=== PATIENT | male | born 1955 | race African-American/Black ===

== ENCOUNTER 2020-09-05 02:50 | Emergency (ER) | payer MEDICARE ==
[~2020-09-05] VITALS: Ht 182.9 cm; Wt 82.0 kg
[2020-09-05 03:05] VITALS: BP 143/88
== END 2020-09-05 03:34 | disposition home or self-care (01) ==
LOC: ER 03:10
DX: F32.9 Major depressive disorder, single episode, unspecified (principal); R45.6 Violent behavior
CPT/HCPCS: 99283

== ENCOUNTER 2022-10-28 17:04 | Inpatient (IN) | payer MEDICARE, OTHER ==
[~2022-10-28] VITALS: Ht 185.4 cm; Wt 63.1 kg
[2022-10-28 17:00] VITALS: BP 150/87; PULSE 82; RESP 18; TEMP 96.4
[~2022-10-28 17:04] MED LIST: TRAZ-251 MT
[2022-10-28] MEDS ORDERED: ONDANSETRON HCL 4MG/2ML INJ IV PRN (17:30)
[2022-10-28] MEDS ORDERED: LORAZEPAM 2MG/ML CPJ IV PRN ×2 (17:30→17:45)
[2022-10-28] MEDS ORDERED: CLONIDINE 0.1MG TABLET PO PRN (17:30)
[2022-10-28] MEDS ORDERED: GUAIFENESIN 600MG ER TABLET PO SCH (17:30)
[2022-10-28] MEDS ORDERED: LEVETIRACETAM 500MG TABLET PO PRN (17:45)
[2022-10-28] MEDS ORDERED: GUAIFENESIN 600MG ER TABLET PO PRN (17:45)
[2022-10-28] MEDS ORDERED: LORAZEPAM 1MG TABLET PO PRN (17:45)
[2022-10-28] MEDS: FAMOTIDINE 20MG/2ML VIAL IV SCH (22:01)
[2022-10-28] MEDS: DEXT 5%/0.9% NACL 1,000 ML IV SCH (22:02)
[2022-10-29] MEDS: DEXT 5%/0.9% NACL 1,000 ML IV SCH ×2 (06:50→23:03)
[2022-10-29 07:04] LABS: HEMATOCRIT. 40.5 % (42.0-52.0); HEMOGLOBIN. 13.4 g/dL (14.0-18.0); MEAN CORPUSCULAR HEMOGLOBIN 29.4 pg (28.0-32.0); MEAN CORPUSCULAR HGB CONC 33.1 g/dL (31.0-37.0); MEAN CORPUSCULAR VOLUME 88.8 fL (80.0-94.0); MEAN PLATELET VOLUME 10.6 fl (7.4-10.4); PLATELET 89 x1000/uL (130-400); RED BLOOD CELL COUNT 4.56 mill/uL (4.7-6.1); RED CELL DISTRIBUTION WIDTH 14.1 % (11.6-14.6); WHITE BLOOD COUNT 2.3 x1000/uL (4.5-11.0)
[2022-10-29 07:24] LABS: DIFFERENTIAL COMMENT 1
[2022-10-29 08:00] VITALS: BP 140/73; PULSE 59; RESP 18; TEMP 98.2
[2022-10-29 08:15] LABS: CHLORIDE 110 mEq/L (98-107); INDEX HEMOLYSI 2 (1-3); INDEX ICTERIC 1 (1-4); INDEX LIPEMIC 1 (1-3); SODIUM 140 mEq/L (136-145)
[2022-10-29 08:33] LABS: ALANINE AMINOTRANSFERASE 129 IU/L (13-61); ALBUMIN 2.3 g/dL (3.4-5.0); ASPARTATE AMINOTRANSFERASE 151 IU/L (15-37); BILIRUBIN TOTAL 0.9 mg/dL (0.1-1.0); CALCIUM 8.4 mg/dL (8.5-10.1); CARBON DIOXIDE 25 mEq/L (21-32); CREATININE 0.7 mg/dL (0.6-1.3); GLUCOSE 93 mg/dL (70-105); PREALBUMIN 7.6 mg/dL (20.0-40.0); PROTEIN TOTAL 6.9 g/dL (6.0-8.3); UREA NITROGEN BLOOD 10 mg/dL (7-21)
[2022-10-29] MEDS: AMLODIPINE 5MG TABLET PO SCH (09:59)
[2022-10-29] MEDS: THIAMINE HCL 100MG TABLET PO SCH (09:59)
[2022-10-29 20:00] VITALS: BP 139/69; PULSE 66; RESP 20; TEMP 98.6
[2022-10-29] MEDS: ATORVASTATIN CALCIUM 40MG TABLET PO SCH (22:27)
[2022-10-29] MEDS: FAMOTIDINE 20MG/2ML VIAL IV SCH (22:28)
[2022-10-30 08:00] VITALS: BP 121/75; PULSE 63; RESP 17; TEMP 97.3
[2022-10-30 08:29] LABS: HEMATOCRIT. 40.7 % (42.0-52.0); HEMOGLOBIN. 13.4 g/dL (14.0-18.0); MEAN CORPUSCULAR HEMOGLOBIN 28.9 pg (28.0-32.0); MEAN CORPUSCULAR HGB CONC 32.9 g/dL (31.0-37.0); MEAN PLATELET VOLUME 10.4 fl (7.4-10.4); PLATELET 96 x1000/uL (130-400); RED BLOOD CELL COUNT 4.62 mill/uL (4.7-6.1); RED CELL DISTRIBUTION WIDTH 13.5 % (11.6-14.6); WHITE BLOOD COUNT 2.7 x1000/uL (4.5-11.0)
[2022-10-30 08:33] LABS: DIFFERENTIAL COMMENT 1
[2022-10-30 08:53] LABS: CHLORIDE 110 mEq/L (98-107); INDEX HEMOLYSI 1 (1-3); INDEX ICTERIC 1 (1-4); INDEX LIPEMIC 1 (1-3); SODIUM 137 mEq/L (136-145)
[2022-10-30 09:01] LABS: PLATELET ESTIMATE DECREASED
[2022-10-30 09:09] LABS: ALANINE AMINOTRANSFERASE 130 IU/L (13-61); ALBUMIN 2.5 g/dL (3.4-5.0); ASPARTATE AMINOTRANSFERASE 129 IU/L (15-37); BILIRUBIN TOTAL 1.4 mg/dL (0.1-1.0); CARBON DIOXIDE 28 mEq/L (21-32); CREATININE 0.7 mg/dL (0.6-1.3); GLUCOSE 109 mg/dL (70-105); IRON 75 ug/dL (50-175); PROTEIN TOTAL 7.6 g/dL (6.0-8.3); THYROID STIMULATING HORMONE 0.75 uIU/mL (0.36-3.74); TOTAL IRON BINDING CAPACITY 260 ug/dL (250-450); UREA NITROGEN BLOOD 8 mg/dL (7-21)
[2022-10-30 09:19] LABS: VITAMIN B12 SERUM 843 pg/mL (211-911)
[2022-10-30] MEDS: QUETIAPINE FUMARATE 25MG TABLET PO SCH ×2 (09:51→21:30)
[2022-10-30] MEDS: ACETAMINOPHEN 325MG TABLET PO PRN (09:51)
[2022-10-30] MEDS: ASPIRIN 81MG EC TABLET PO SCH (09:52)
[2022-10-30] MEDS: AMLODIPINE 5MG TABLET PO SCH (09:52)
[2022-10-30] MEDS: THIAMINE HCL 100MG TABLET PO SCH (09:52)
[2022-10-30 10:22] LABS: PLATELET ESTIMATE DECREASED; TARGET CELLS 1+
[2022-10-30] MEDS ORDERED: LORAZEPAM 2MG/ML CPJ IV NR (12:30)
[2022-10-30 15:10] LABS: FERRITIN 494 ng/mL (22-322)
[2022-10-30 15:11] LABS: PROSTRATE SPECIFIC AG TOTAL 0.38 ng/mL (0.0-4.0)
[2022-10-30 20:00] VITALS: BP 168/88; PULSE 95; RESP 18; TEMP 99.3
[2022-10-30] MEDS: FAMOTIDINE 20MG/2ML VIAL IV SCH (21:00)
[2022-10-30] MEDS: ATORVASTATIN CALCIUM 40MG TABLET PO SCH (21:30)
[2022-10-30] MEDS: DEXT 5%/0.9% NACL 1,000 ML IV SCH ×2 (22:50→23:00)
[2022-10-31] VITALS: BP 168/88; PULSE 95; RESP 18; TEMP 99.3
[2022-10-31 08:00] VITALS: BP 120/69; PULSE 86; RESP 17; TEMP 97.4
[2022-10-31] MEDS: AMLODIPINE 5MG TABLET PO SCH (10:25)
[2022-10-31] MEDS: QUETIAPINE FUMARATE 25MG TABLET PO SCH ×2 (10:25→21:19)
[2022-10-31] MEDS: ASPIRIN 81MG EC TABLET PO SCH (10:25)
[2022-10-31] MEDS: THIAMINE HCL 100MG TABLET PO SCH (10:25)
[2022-10-31] MEDS: DEXT 5%/0.9% NACL 1,000 ML IV SCH (12:10)
[2022-10-31] MEDS ORDERED: ENOXAPARIN 80MG/0.8ML SYR SUBCUT SCH (14:00)
[2022-10-31 17:46] LABS: INR 1.2; PROTHROMBIN TIME 12.4 sec (9.6-11.0)
[2022-10-31 20:00] VITALS: BP 120/64; PULSE 101; RESP 18; TEMP 98.3
[2022-10-31] MEDS: ATORVASTATIN CALCIUM 40MG TABLET PO SCH (21:19)
[2022-10-31] MEDS: FAMOTIDINE 20MG/2ML VIAL IV SCH (21:22)
[2022-11-01] MEDS: DEXT 5%/0.9% NACL 1,000 ML IV SCH ×2 (02:30→14:50)
[2022-11-01] MEDS: ENOXAPARIN 80MG/0.8ML SYR SUBCUT SCH ×2 (05:33→18:54)
[2022-11-01 08:00] VITALS: BP 105/61; PULSE 74; RESP 20; TEMP 98
[2022-11-01] MEDS: THIAMINE HCL 100MG TABLET PO SCH (10:12)
[2022-11-01] MEDS: ASPIRIN 81MG EC TABLET PO SCH (10:12)
[2022-11-01] MEDS: AMLODIPINE 5MG TABLET PO SCH (10:13)
[2022-11-01 20:00] VITALS: BP 119/78; PULSE 91; RESP 20; TEMP 97.9
[2022-11-01] MEDS: FAMOTIDINE 20MG/2ML VIAL IV SCH (21:30)
[2022-11-01] MEDS: ATORVASTATIN CALCIUM 40MG TABLET PO SCH (21:31)
[2022-11-01] MEDS: QUETIAPINE FUMARATE 25MG TABLET PO SCH (21:31)
[2022-11-02] MEDS: DEXT 5%/0.9% NACL 1,000 ML IV SCH ×2 (04:10→17:32)
[2022-11-02] MEDS: ENOXAPARIN 80MG/0.8ML SYR SUBCUT SCH ×2 (05:53→17:32)
[2022-11-02 08:00] VITALS: BP 112/68; PULSE 88; RESP 17; TEMP 97.6
[2022-11-02] MEDS: THIAMINE HCL 100MG TABLET PO SCH (08:53)
[2022-11-02] MEDS: ACETAMINOPHEN 325MG TABLET PO PRN (08:53)
[2022-11-02] MEDS: ASPIRIN 81MG EC TABLET PO SCH (08:53)
[2022-11-02] MEDS: AMLODIPINE 5MG TABLET PO SCH (08:54)
[2022-11-02 19:38] VITALS: BP 137/81; PULSE 77; RESP 20; TEMP 98.4
[2022-11-02] MEDS: FAMOTIDINE 20MG/2ML VIAL IV SCH (21:26)
[2022-11-02] MEDS: ATORVASTATIN CALCIUM 40MG TABLET PO SCH (21:32)
[2022-11-02] MEDS: QUETIAPINE FUMARATE 25MG TABLET PO SCH (21:33)
[2022-11-03] MEDS: DEXT 5%/0.9% NACL 1,000 ML IV SCH ×3 (00:15→20:55)
[2022-11-03] MEDS: ENOXAPARIN 80MG/0.8ML SYR SUBCUT SCH ×2 (06:00→17:05)
[2022-11-03 06:37] LABS: HEMOGLOBIN. 12.7 g/dL (14.0-18.0); MEAN CORPUSCULAR HEMOGLOBIN 29.6 pg (28.0-32.0); MEAN CORPUSCULAR HGB CONC 33.5 g/dL (31.0-37.0); MEAN CORPUSCULAR VOLUME 88.4 fL (80.0-94.0); MEAN PLATELET VOLUME 9.6 fl (7.4-10.4); PLATELET 124 x1000/uL (130-400); RED BLOOD CELL COUNT 4.29 mill/uL (4.7-6.1); RED CELL DISTRIBUTION WIDTH 13.6 % (11.6-14.6); WHITE BLOOD COUNT 2.7 x1000/uL (4.5-11.0)
[2022-11-03 06:42] LABS: DIFFERENTIAL COMMENT 1
[2022-11-03 07:43] LABS: CHLORIDE 110 mEq/L (98-107); INDEX HEMOLYSI 1 (1-3); INDEX ICTERIC 1 (1-4); INDEX LIPEMIC 1 (1-3); POTASSIUM 4.1 mEq/L (3.5-5.1); SODIUM 139 mEq/L (136-145)
[2022-11-03 07:54] LABS: ALANINE AMINOTRANSFERASE 112 IU/L (13-61); ALBUMIN 2.2 g/dL (3.4-5.0); ASPARTATE AMINOTRANSFERASE 126 IU/L (15-37); BILIRUBIN TOTAL 0.8 mg/dL (0.1-1.0); CALCIUM 8.2 mg/dL (8.5-10.1); CARBON DIOXIDE 25 mEq/L (21-32); CREATININE 0.7 mg/dL (0.6-1.3); GLUCOSE 97 mg/dL (70-105); UREA NITROGEN BLOOD 11 mg/dL (7-21)
[2022-11-03 08:00] VITALS: BP 122/56; PULSE 69; RESP 20; TEMP 98.1
[2022-11-03] MEDS: AMLODIPINE 5MG TABLET PO SCH (09:32)
[2022-11-03] MEDS: ASPIRIN 81MG EC TABLET PO SCH (09:32)
[2022-11-03] MEDS: THIAMINE HCL 100MG TABLET PO SCH (09:32)
[2022-11-03 13:55] LABS: PLATELET ESTIMATE NORMAL
[2022-11-03 20:00] VITALS: BP 115/65; PULSE 71; RESP 18; TEMP 99
[2022-11-03] MEDS: QUETIAPINE FUMARATE 25MG TABLET PO SCH (20:53)
[2022-11-03] MEDS: ATORVASTATIN CALCIUM 40MG TABLET PO SCH (20:53)
[2022-11-03] MEDS: FAMOTIDINE 20MG/2ML VIAL IV SCH (20:54)
[2022-11-03 20:58] LABS: HEPATITIS B SURFACE ANTIGEN NEGATIVE
[2022-11-04] MEDS: ENOXAPARIN 80MG/0.8ML SYR SUBCUT SCH ×2 (06:49→18:32)
[2022-11-04] MEDS: DEXT 5%/0.9% NACL 1,000 ML IV SCH ×2 (06:50→23:00)
[2022-11-04 08:00] VITALS: BP 137/74; PULSE 84; RESP 18; TEMP 96
[2022-11-04] MEDS: THIAMINE HCL 100MG TABLET PO SCH (09:31)
[2022-11-04] MEDS: AMLODIPINE 5MG TABLET PO SCH (09:31)
[2022-11-04] MEDS: ASPIRIN 81MG EC TABLET PO SCH (09:31)
[2022-11-04] MEDS: ACETAMINOPHEN 325MG TABLET PO PRN (09:32)
[2022-11-04 11:40] VITALS: PULSE 84; RESP 18
[2022-11-04 20:00] VITALS: BP 154/81; PULSE 77; RESP 17; TEMP 97.9
[2022-11-04] MEDS: FAMOTIDINE 20MG/2ML VIAL IV SCH (21:33)
[2022-11-04] MEDS: ATORVASTATIN CALCIUM 40MG TABLET PO SCH (21:56)
[2022-11-04] MEDS: QUETIAPINE FUMARATE 25MG TABLET PO SCH (21:57)
[2022-11-05] MEDS: ACETAMINOPHEN 325MG TABLET PO PRN ×2 (01:00→09:22)
[2022-11-05] MEDS: ENOXAPARIN 80MG/0.8ML SYR SUBCUT SCH ×2 (06:29→17:46)
[2022-11-05 08:00] VITALS: BP 118/66; PULSE 61; RESP 18; TEMP 98.1
[2022-11-05] MEDS: THIAMINE HCL 100MG TABLET PO SCH (08:14)
[2022-11-05] MEDS: AMLODIPINE 5MG TABLET PO SCH (08:15)
[2022-11-05] MEDS: ASPIRIN 81MG EC TABLET PO SCH (08:15)
[2022-11-05] MEDS: DEXT 5%/0.9% NACL 1,000 ML IV SCH (13:09)
[2022-11-05 20:00] VITALS: PULSE 77; RESP 18; TEMP 97.9
[2022-11-05] MEDS: QUETIAPINE FUMARATE 25MG TABLET PO SCH (21:11)
[2022-11-05] MEDS: ATORVASTATIN CALCIUM 40MG TABLET PO SCH (21:11)
[2022-11-05 21:25] LABS: HEPATITIS B CORE AB IGM NEGATIVE
[2022-11-05] MEDS: FAMOTIDINE 20MG/2ML VIAL IV SCH (21:29)
[2022-11-05 21:33] LABS: HEPATITIS C VIR.AB > 11.00 INDEXVAL (0.00-0.80)
[2022-11-05 22:07] LABS: HEPATITIS A AB IGM NEGATIVE (NEGATIVE)
[2022-11-06] MEDS: DEXT 5%/0.9% NACL 1,000 ML IV SCH ×2 (01:12→14:50)
[2022-11-06] MEDS: ENOXAPARIN 80MG/0.8ML SYR SUBCUT SCH ×2 (05:57→17:52)
[2022-11-06 07:49] LABS: HEMATOCRIT. 39.1 % (42.0-52.0); HEMOGLOBIN. 13.1 g/dL (14.0-18.0); MEAN CORPUSCULAR HEMOGLOBIN 29.4 pg (28.0-32.0); MEAN CORPUSCULAR HGB CONC 33.4 g/dL (31.0-37.0); MEAN PLATELET VOLUME 10.1 fl (7.4-10.4); PLATELET 129 x1000/uL (130-400); RED BLOOD CELL COUNT 4.45 mill/uL (4.7-6.1); RED CELL DISTRIBUTION WIDTH 13.6 % (11.6-14.6)
[2022-11-06 08:00] VITALS: BP 106/65; PULSE 67; RESP 18; TEMP 98
[2022-11-06 08:10] LABS: DIFFERENTIAL COMMENT 1
[2022-11-06 08:53] LABS: CHLORIDE 109 mEq/L (98-107); INDEX HEMOLYSI 1 (1-3); INDEX ICTERIC 1 (1-4); INDEX LIPEMIC 1 (1-3); POTASSIUM 4.1 mEq/L (3.5-5.1); SODIUM 138 mEq/L (136-145)
[2022-11-06] MEDS: AMLODIPINE 5MG TABLET PO SCH (09:00)
[2022-11-06 09:04] LABS: ALANINE AMINOTRANSFERASE 132 IU/L (13-61); ALBUMIN 2.3 g/dL (3.4-5.0); ASPARTATE AMINOTRANSFERASE 135 IU/L (15-37); BILIRUBIN TOTAL 0.7 mg/dL (0.1-1.0); CALCIUM 8.4 mg/dL (8.5-10.1); CARBON DIOXIDE 28 mEq/L (21-32); CREATININE 0.9 mg/dL (0.6-1.3); GLUCOSE 93 mg/dL (70-105); PROTEIN TOTAL 7.3 g/dL (6.0-8.3); UREA NITROGEN BLOOD 8 mg/dL (7-21)
[2022-11-06] MEDS: ASPIRIN 81MG EC TABLET PO SCH (09:58)
[2022-11-06] MEDS: THIAMINE HCL 100MG TABLET PO SCH (09:58)
[2022-11-06] MEDS ORDERED: ONDANSETRON HCL 4MG TABLET PO PRN (15:28)
[2022-11-06 17:05] LABS: PLATELET ESTIMATE NORMAL
[2022-11-06 20:00] VITALS: BP 101/61; PULSE 80; RESP 20; TEMP 97.9
[2022-11-06] MEDS: ATORVASTATIN CALCIUM 40MG TABLET PO SCH (21:25)
[2022-11-06] MEDS: QUETIAPINE FUMARATE 25MG TABLET PO SCH (21:26)
[2022-11-06] MEDS: FAMOTIDINE 20MG TABLET PO SCH (21:26)
[2022-11-07] MEDS: DEXT 5%/0.9% NACL 1,000 ML IV SCH ×2 (04:10→18:04)
[2022-11-07] MEDS: ENOXAPARIN 80MG/0.8ML SYR SUBCUT SCH ×2 (06:20→18:05)
[2022-11-07 08:00] VITALS: BP 103/67; PULSE 74; RESP 18; TEMP 98.4
[2022-11-07] MEDS: ASPIRIN 81MG EC TABLET PO SCH (08:52)
[2022-11-07] MEDS: THIAMINE HCL 100MG TABLET PO SCH (08:52)
[2022-11-07] MEDS: AMLODIPINE 5MG TABLET PO SCH (08:55)
[2022-11-07 19:52] VITALS: BP 131/56; PULSE 71; RESP 17; TEMP 96.9
[2022-11-07] MEDS: ATORVASTATIN CALCIUM 40MG TABLET PO SCH (21:51)
[2022-11-07] MEDS: FAMOTIDINE 20MG TABLET PO SCH (21:51)
[2022-11-07] MEDS: QUETIAPINE FUMARATE 25MG TABLET PO SCH (21:51)
[2022-11-08] MEDS: DEXT 5%/0.9% NACL 1,000 ML IV SCH (04:50)
[2022-11-08] MEDS: ENOXAPARIN 80MG/0.8ML SYR SUBCUT SCH ×2 (06:17→16:40)
[2022-11-08 06:57] LABS: HEMATOCRIT. 37.8 % (42.0-52.0); HEMOGLOBIN. 12.6 g/dL (14.0-18.0); MEAN CORPUSCULAR HEMOGLOBIN 29.1 pg (28.0-32.0); MEAN CORPUSCULAR HGB CONC 33.2 g/dL (31.0-37.0); MEAN CORPUSCULAR VOLUME 87.6 fL (80.0-94.0); MEAN PLATELET VOLUME 10.7 fl (7.4-10.4); PLATELET 140 x1000/uL (130-400); RED BLOOD CELL COUNT 4.31 mill/uL (4.7-6.1); RED CELL DISTRIBUTION WIDTH 13.7 % (11.6-14.6); WHITE BLOOD COUNT 2.7 x1000/uL (4.5-11.0)
[2022-11-08 07:35] LABS: CHLORIDE 108 mEq/L (98-107); INDEX HEMOLYSI 1 (1-3); INDEX ICTERIC 1 (1-4); INDEX LIPEMIC 1 (1-3); POTASSIUM 4.1 mEq/L (3.5-5.1); SODIUM 136 mEq/L (136-145)
[2022-11-08 07:37] LABS: DIFFERENTIAL COMMENT 1
[2022-11-08 07:46] LABS: ALANINE AMINOTRANSFERASE 119 IU/L (13-61); ALBUMIN 2.1 g/dL (3.4-5.0); ASPARTATE AMINOTRANSFERASE 119 IU/L (15-37); BILIRUBIN DIRECT 0.2 mg/dL (0.0-0.2); BILIRUBIN TOTAL 0.5 mg/dL (0.1-1.0); CALCIUM 8.4 mg/dL (8.5-10.1); CARBON DIOXIDE 25 mEq/L (21-32); CREATININE 0.7 mg/dL (0.6-1.3); GLUCOSE 92 mg/dL (70-105); PHOSPHORUS 3.4 mg/dL (2.5-4.9); PROTEIN TOTAL 7.2 g/dL (6.0-8.3); UREA NITROGEN BLOOD 12 mg/dL (7-21)
[2022-11-08 08:00] VITALS: BP 106/75; PULSE 76; RESP 18; TEMP 98.4
[2022-11-08] MEDS: AMLODIPINE 5MG TABLET PO SCH (08:26)
[2022-11-08] MEDS: ASPIRIN 81MG EC TABLET PO SCH (08:28)
[2022-11-08] MEDS: THIAMINE HCL 100MG TABLET PO SCH (08:28)
[2022-11-08] MEDS: ACETAMINOPHEN 325MG TABLET PO PRN ×2 (11:49→20:53)
[2022-11-08 18:03] LABS: PLATELET ESTIMATE NORMAL
[2022-11-08 19:39] VITALS: BP 149/85; PULSE 75; RESP 20; TEMP 97.5
[2022-11-08] MEDS: QUETIAPINE FUMARATE 25MG TABLET PO SCH (20:53)
[2022-11-08] MEDS: FAMOTIDINE 20MG TABLET PO SCH (20:53)
[2022-11-08] MEDS: ATORVASTATIN CALCIUM 40MG TABLET PO SCH (20:53)
[2022-11-09] MEDS: ENOXAPARIN 80MG/0.8ML SYR SUBCUT SCH ×2 (05:41→17:55)
[2022-11-09 07:09] LABS: ALBUMIN 2.3 g/dL (3.4-5.0); BILIRUBIN DIRECT 0.2 mg/dL (0.0-0.2); BILIRUBIN TOTAL 0.6 mg/dL (0.1-1.0); PROTEIN TOTAL 7.8 g/dL (6.0-8.3)
[2022-11-09 08:00] VITALS: BP 97/55; PULSE 73; RESP 17; TEMP 97.6
[2022-11-09] MEDS: ASPIRIN 81MG EC TABLET PO SCH (08:45)
[2022-11-09] MEDS: THIAMINE HCL 100MG TABLET PO SCH (08:45)
[2022-11-09] MEDS: AMLODIPINE 5MG TABLET PO SCH (09:00)
[2022-11-09] MEDS ORDERED: HYDROCODONE/ACETAMINOPHEN 5/325MG TABLET PO PRN (14:45)
[2022-11-09] MEDS ORDERED: ACETAMINOPHEN 325MG TABLET PO PRN (14:45)
[2022-11-09] MEDS ORDERED: NALOXONE HCL 0.4MG/ML VIAL IV PRN (14:45)
[2022-11-09] MEDS: LIDOCAINE 5% PATCH TOP SCH (17:55)
[2022-11-09] MEDS: DICLOFENAC SODIUM 1% GEL 50GM TOP SCH ×2 (17:55→22:16)
[2022-11-09 20:00] VITALS: BP 111/63; PULSE 78; RESP 17; TEMP 98.1
[2022-11-09] MEDS: ATORVASTATIN CALCIUM 40MG TABLET PO SCH (22:15)
[2022-11-09] MEDS: QUETIAPINE FUMARATE 25MG TABLET PO SCH (22:15)
[2022-11-09] MEDS: FAMOTIDINE 20MG TABLET PO SCH (22:15)
[2022-11-09] MEDS: GABAPENTIN 100MG CAPSULE PO SCH (23:00)
[2022-11-10] MEDS: GABAPENTIN 100MG CAPSULE PO SCH ×3 (06:46→22:07)
[2022-11-10] MEDS: ENOXAPARIN 80MG/0.8ML SYR SUBCUT SCH ×3 (06:46→19:18)
[2022-11-10 08:00] VITALS: BP 104/66; PULSE 72; RESP 18; TEMP 98
[2022-11-10 08:19] LABS: ALBUMIN 2.5 g/dL (3.4-5.0); BILIRUBIN DIRECT 0.2 mg/dL (0.0-0.2); BILIRUBIN TOTAL 0.6 mg/dL (0.1-1.0); PROTEIN TOTAL 8.1 g/dL (6.0-8.3)
[2022-11-10] MEDS: DICLOFENAC SODIUM 1% GEL 50GM TOP SCH ×4 (08:29→21:00)
[2022-11-10] MEDS: AMLODIPINE 5MG TABLET PO SCH (08:33)
[2022-11-10] MEDS: THIAMINE HCL 100MG TABLET PO SCH (08:33)
[2022-11-10] MEDS: ASPIRIN 81MG EC TABLET PO SCH (08:33)
[2022-11-10] MEDS: LIDOCAINE 5% PATCH TOP SCH (08:37)
[2022-11-10 20:00] VITALS: BP 100/65; PULSE 82; RESP 18; TEMP 98
[2022-11-10] MEDS: FAMOTIDINE 20MG TABLET PO SCH (21:00)
[2022-11-10] MEDS: ATORVASTATIN CALCIUM 40MG TABLET PO SCH (22:07)
[2022-11-10] MEDS: QUETIAPINE FUMARATE 25MG TABLET PO SCH (22:08)
[2022-11-11] MEDS: GABAPENTIN 100MG CAPSULE PO SCH ×3 (05:58→21:52)
[2022-11-11 06:50] LABS: BASOPHILS % 1.8 % (0.0-2.0); EOSINOPHILS % 2.2 % (0.0-5.0); HEMATOCRIT. 39.5 % (42.0-52.0); HEMOGLOBIN. 13.3 g/dL (14.0-18.0); MEAN CORPUSCULAR HEMOGLOBIN 29.4 pg (28.0-32.0); MEAN CORPUSCULAR HGB CONC 33.5 g/dL (31.0-37.0); MEAN CORPUSCULAR VOLUME 87.6 fL (80.0-94.0); MEAN PLATELET VOLUME 10.3 fl (7.4-10.4); MONOCYTES % 12.9 % (2.0-8.0); NEUTROPHILS % 37.1 % (40.0-76.0); PLATELET 157 x1000/uL (130-400); RED BLOOD CELL COUNT 4.51 mill/uL (4.7-6.1); RED CELL DISTRIBUTION WIDTH 13.4 % (11.6-14.6); WHITE BLOOD COUNT 2.4 x1000/uL (4.5-11.0)
[2022-11-11 07:00] LABS: INR 1.1
[2022-11-11 07:06] LABS: CHLORIDE 111 mEq/L (98-107); INDEX HEMOLYSI 1 (1-3); INDEX ICTERIC 1 (1-4); INDEX LIPEMIC 1 (1-3); POTASSIUM 4.3 mEq/L (3.5-5.1); SODIUM 139 mEq/L (136-145)
[2022-11-11 07:09] LABS: AMMONIA 38 uMol/L (<32)
[2022-11-11 07:12] LABS: ALANINE AMINOTRANSFERASE 143 IU/L (13-61); ALBUMIN 2.5 g/dL (3.4-5.0); ASPARTATE AMINOTRANSFERASE 138 IU/L (15-37); BILIRUBIN DIRECT 0.2 mg/dL (0.0-0.2); BILIRUBIN TOTAL 0.5 mg/dL (0.1-1.0); CALCIUM 9.2 mg/dL (8.5-10.1); CARBON DIOXIDE 25 mEq/L (21-32); CREATININE 0.7 mg/dL (0.6-1.3); GLUCOSE 84 mg/dL (70-105); PHOSPHORUS 3.5 mg/dL (2.5-4.9); PROTEIN TOTAL 8.2 g/dL (6.0-8.3); UREA NITROGEN BLOOD 15 mg/dL (7-21)
[2022-11-11 08:00] VITALS: BP 104/64; PULSE 86; RESP 18; TEMP 97.3
[2022-11-11] MEDS: LIDOCAINE 5% PATCH TOP SCH (09:00)
[2022-11-11] MEDS ORDERED: GADOTERATE MEGLUMINE 5 MMOL/10 ML VIAL IV ONE (09:41)
[2022-11-11] MEDS: AMLODIPINE 5MG TABLET PO SCH (10:20)
[2022-11-11] MEDS: THIAMINE HCL 100MG TABLET PO SCH (10:20)
[2022-11-11] MEDS: ASPIRIN 81MG EC TABLET PO SCH (10:20)
[2022-11-11] MEDS: DICLOFENAC SODIUM 1% GEL 50GM TOP SCH ×4 (10:22→21:00)
[2022-11-11] MEDS: ENOXAPARIN 80MG/0.8ML SYR SUBCUT SCH (17:48)
[2022-11-11 19:52] VITALS: BP 154/85; PULSE 89; RESP 20; TEMP 97.1
[2022-11-11] MEDS: ATORVASTATIN CALCIUM 40MG TABLET PO SCH (21:00)
[2022-11-11] MEDS: FAMOTIDINE 20MG TABLET PO SCH ×2 (21:00→21:04)
[2022-11-11] MEDS: QUETIAPINE FUMARATE 25MG TABLET PO SCH (21:03)
[2022-11-12] MEDS: ENOXAPARIN 80MG/0.8ML SYR SUBCUT SCH ×2 (05:49→18:00)
[2022-11-12] MEDS: GABAPENTIN 100MG CAPSULE PO SCH ×3 (05:50→21:54)
[2022-11-12 07:24] LABS: HEMATOCRIT. 38.4 % (42.0-52.0); HEMOGLOBIN. 12.8 g/dL (14.0-18.0); MEAN CORPUSCULAR HEMOGLOBIN 29.4 pg (28.0-32.0); MEAN CORPUSCULAR HGB CONC 33.4 g/dL (31.0-37.0); MEAN CORPUSCULAR VOLUME 87.8 fL (80.0-94.0); MEAN PLATELET VOLUME 9.9 fl (7.4-10.4); PLATELET 160 x1000/uL (130-400); RED BLOOD CELL COUNT 4.37 mill/uL (4.7-6.1); RED CELL DISTRIBUTION WIDTH 13.6 % (11.6-14.6)
[2022-11-12 07:27] LABS: CHLORIDE 106 mEq/L (98-107); INDEX HEMOLYSI 1 (1-3); INDEX ICTERIC 1 (1-4); INDEX LIPEMIC 1 (1-3); POTASSIUM 4.1 mEq/L (3.5-5.1); SODIUM 137 mEq/L (136-145)
[2022-11-12 07:35] LABS: ALANINE AMINOTRANSFERASE 147 IU/L (13-61); ALBUMIN 2.5 g/dL (3.4-5.0); ASPARTATE AMINOTRANSFERASE 145 IU/L (15-37); BILIRUBIN DIRECT 0.2 mg/dL (0.0-0.2); BILIRUBIN TOTAL 0.5 mg/dL (0.1-1.0); CALCIUM 8.8 mg/dL (8.5-10.1); CARBON DIOXIDE 26 mEq/L (21-32); CREATININE 0.7 mg/dL (0.6-1.3); GLUCOSE 89 mg/dL (70-105); PROTEIN TOTAL 8.1 g/dL (6.0-8.3); UREA NITROGEN BLOOD 15 mg/dL (7-21)
[2022-11-12 07:43] LABS: DIFFERENTIAL COMMENT 1
[2022-11-12 08:00] VITALS: BP 108/52; PULSE 69; RESP 18; TEMP 98.2
[2022-11-12] MEDS: AMLODIPINE 5MG TABLET PO SCH ×2 (10:24→10:28)
[2022-11-12] MEDS: THIAMINE HCL 100MG TABLET PO SCH ×2 (10:25→10:27)
[2022-11-12] MEDS: ASPIRIN 81MG EC TABLET PO SCH ×2 (10:25→10:27)
[2022-11-12] MEDS: LIDOCAINE 5% PATCH TOP SCH (10:30)
[2022-11-12] MEDS: DICLOFENAC SODIUM 1% GEL 50GM TOP SCH ×3 (10:30→22:05)
[2022-11-12] MEDS ORDERED: NON FORMULARY PATIENT HOME MED XX SCH (14:45)
[2022-11-12] MEDS: ERGOCALCIFEROL 50000UNITS CAPSULE PO SCH (16:00)
[2022-11-12 20:00] VITALS: BP 97/52; PULSE 72; RESP 18; TEMP 98.6
[2022-11-12] MEDS: ATORVASTATIN CALCIUM 40MG TABLET PO SCH (21:53)
[2022-11-12] MEDS: FAMOTIDINE 20MG TABLET PO SCH (21:54)
[2022-11-12] MEDS: QUETIAPINE FUMARATE 25MG TABLET PO SCH (21:54)
[2022-11-13] MEDS: GABAPENTIN 100MG CAPSULE PO SCH ×3 (05:54→22:46)
[2022-11-13] MEDS: ENOXAPARIN 80MG/0.8ML SYR SUBCUT SCH (05:55)
[2022-11-13 06:50] LABS: PLATELET ESTIMATE NORMAL
[2022-11-13 08:00] VITALS: BP 105/71; PULSE 99; RESP 17; TEMP 97.9
[2022-11-13 08:14] LABS: HEMATOCRIT. 38.7 % (42.0-52.0); HEMOGLOBIN. 12.9 g/dL (14.0-18.0); MEAN CORPUSCULAR HEMOGLOBIN 29.3 pg (28.0-32.0); MEAN CORPUSCULAR HGB CONC 33.3 g/dL (31.0-37.0); MEAN CORPUSCULAR VOLUME 87.9 fL (80.0-94.0); MEAN PLATELET VOLUME 10.3 fl (7.4-10.4); PLATELET 157 x1000/uL (130-400); RED CELL DISTRIBUTION WIDTH 13.3 % (11.6-14.6)
[2022-11-13 08:21] LABS: DIFFERENTIAL COMMENT 1
[2022-11-13 08:27] LABS: CHLORIDE 109 mEq/L (98-107); INDEX HEMOLYSI 1 (1-3); INDEX ICTERIC 1 (1-4); INDEX LIPEMIC 1 (1-3); SODIUM 140 mEq/L (136-145)
[2022-11-13 08:42] LABS: ALANINE AMINOTRANSFERASE 155 IU/L (13-61); ALBUMIN 2.4 g/dL (3.4-5.0); ASPARTATE AMINOTRANSFERASE 153 IU/L (15-37); BILIRUBIN DIRECT 0.2 mg/dL (0.0-0.2); BILIRUBIN TOTAL 0.8 mg/dL (0.1-1.0); CARBON DIOXIDE 27 mEq/L (21-32); CREATININE 0.8 mg/dL (0.6-1.3); GLUCOSE 89 mg/dL (70-105); PROTEIN TOTAL 7.8 g/dL (6.0-8.3); UREA NITROGEN BLOOD 13 mg/dL (7-21)
[2022-11-13] MEDS: DICLOFENAC SODIUM 1% GEL 50GM TOP SCH ×3 (09:00→19:55)
[2022-11-13] MEDS: ASPIRIN 81MG EC TABLET PO SCH (10:55)
[2022-11-13] MEDS: THIAMINE HCL 100MG TABLET PO SCH (10:56)
[2022-11-13] MEDS: AMLODIPINE 5MG TABLET PO SCH (10:57)
[2022-11-13] MEDS: MULTIVITAMINS,THER W-MINERALS TABLET PO SCH (10:57)
[2022-11-13] MEDS: LIDOCAINE 5% PATCH TOP SCH (10:59)
[2022-11-13] MEDS ORDERED: ERGOCALCIFEROL 50000UNITS CAPSULE PO SCH (11:00)
[2022-11-13 12:42] VITALS: PULSE 99; RESP 17
[2022-11-13] MEDS: ENOXAPARIN 60MG/0.6ML SYR SUBCUT SCH (18:32)
[2022-11-13 20:00] VITALS: BP 110/82; PULSE 84; RESP 18; TEMP 97.4
[2022-11-13] MEDS: ATORVASTATIN CALCIUM 40MG TABLET PO SCH (20:57)
[2022-11-13] MEDS: QUETIAPINE FUMARATE 25MG TABLET PO SCH (20:58)
[2022-11-14 04:19] LABS: PLATELET ESTIMATE NORMAL
[2022-11-14] MEDS: GABAPENTIN 100MG CAPSULE PO SCH ×3 (06:23→21:43)
[2022-11-14] MEDS: ENOXAPARIN 60MG/0.6ML SYR SUBCUT SCH ×2 (06:23→21:44)
[2022-11-14 08:00] VITALS: BP 90/56; PULSE 82; RESP 18; TEMP 98.1
[2022-11-14 08:08] LABS: HEMATOCRIT. 40.5 % (42.0-52.0); HEMOGLOBIN. 13.4 g/dL (14.0-18.0); MEAN CORPUSCULAR HEMOGLOBIN 28.9 pg (28.0-32.0); MEAN CORPUSCULAR VOLUME 87.6 fL (80.0-94.0); MEAN PLATELET VOLUME 10.6 fl (7.4-10.4); PLATELET 166 x1000/uL (130-400); RED BLOOD CELL COUNT 4.62 mill/uL (4.7-6.1); RED CELL DISTRIBUTION WIDTH 13.4 % (11.6-14.6); WHITE BLOOD COUNT 2.1 x1000/uL (4.5-11.0)
[2022-11-14 08:09] LABS: DIFFERENTIAL COMMENT 1
[2022-11-14 08:18] LABS: CHLORIDE 105 mEq/L (98-107); INDEX HEMOLYSI 1 (1-3); INDEX ICTERIC 1 (1-4); INDEX LIPEMIC 1 (1-3); POTASSIUM 4.3 mEq/L (3.5-5.1); SODIUM 138 mEq/L (136-145)
[2022-11-14 08:29] LABS: ALANINE AMINOTRANSFERASE 182 IU/L (13-61); ALBUMIN 2.6 g/dL (3.4-5.0); ASPARTATE AMINOTRANSFERASE 180 IU/L (15-37); BILIRUBIN DIRECT 0.2 mg/dL (0.0-0.2); BILIRUBIN TOTAL 0.8 mg/dL (0.1-1.0); CALCIUM 9.1 mg/dL (8.5-10.1); CARBON DIOXIDE 25 mEq/L (21-32); CREATININE 0.7 mg/dL (0.6-1.3); GLUCOSE 88 mg/dL (70-105); PROTEIN TOTAL 8.3 g/dL (6.0-8.3); UREA NITROGEN BLOOD 14 mg/dL (7-21)
[2022-11-14] MEDS: DICLOFENAC SODIUM 1% GEL 50GM TOP SCH ×4 (09:00→21:00)
[2022-11-14] MEDS: LIDOCAINE 5% PATCH TOP SCH (09:32)
[2022-11-14] MEDS: MULTIVITAMINS,THER W-MINERALS TABLET PO SCH (09:32)
[2022-11-14 12:58] LABS: PLATELET ESTIMATE NORMAL
[2022-11-14 20:00] VITALS: BP 95/63; PULSE 75; RESP 18; TEMP 98.1
[2022-11-14] MEDS: QUETIAPINE FUMARATE 25MG TABLET PO SCH (21:42)
[2022-11-14] MEDS: ATORVASTATIN CALCIUM 40MG TABLET PO SCH (21:43)
[2022-11-14] MEDS: FAMOTIDINE 20MG TABLET PO SCH (21:44)
[2022-11-15] MEDS: GABAPENTIN 100MG CAPSULE PO SCH ×3 (05:49→22:00)
[2022-11-15 07:31] LABS: HEMATOCRIT. 39.5 % (42.0-52.0); HEMOGLOBIN. 12.8 g/dL (14.0-18.0); MEAN CORPUSCULAR HEMOGLOBIN 28.5 pg (28.0-32.0); MEAN CORPUSCULAR HGB CONC 32.5 g/dL (31.0-37.0); MEAN CORPUSCULAR VOLUME 87.7 fL (80.0-94.0); MEAN PLATELET VOLUME 10.2 fl (7.4-10.4); PLATELET 164 x1000/uL (130-400); RED CELL DISTRIBUTION WIDTH 13.1 % (11.6-14.6); WHITE BLOOD COUNT 2.3 x1000/uL (4.5-11.0)
[2022-11-15 07:36] LABS: CHLORIDE 110 mEq/L (98-107); INDEX HEMOLYSI 1 (1-3); INDEX ICTERIC 1 (1-4); INDEX LIPEMIC 1 (1-3); SODIUM 138 mEq/L (136-145)
[2022-11-15 07:38] LABS: DIFFERENTIAL COMMENT 1
[2022-11-15 07:46] LABS: ALANINE AMINOTRANSFERASE 173 IU/L (13-61); ALBUMIN 2.5 g/dL (3.4-5.0); ASPARTATE AMINOTRANSFERASE 165 IU/L (15-37); BILIRUBIN DIRECT 0.2 mg/dL (0.0-0.2); BILIRUBIN TOTAL 0.8 mg/dL (0.1-1.0); CALCIUM 8.7 mg/dL (8.5-10.1); CARBON DIOXIDE 28 mEq/L (21-32); CREATININE 0.8 mg/dL (0.6-1.3); GLUCOSE 87 mg/dL (70-105); PROTEIN TOTAL 7.9 g/dL (6.0-8.3); UREA NITROGEN BLOOD 13 mg/dL (7-21)
[2022-11-15 08:00] VITALS: BP 93/54; PULSE 64; RESP 18; TEMP 97.9
[2022-11-15] MEDS: THIAMINE HCL 100MG TABLET PO SCH (08:26)
[2022-11-15] MEDS: ASPIRIN 81MG EC TABLET PO SCH (08:26)
[2022-11-15] MEDS: ENOXAPARIN 60MG/0.6ML SYR SUBCUT SCH ×2 (08:27→22:01)
[2022-11-15] MEDS: MULTIVITAMINS,THER W-MINERALS TABLET PO SCH (08:27)
[2022-11-15] MEDS: AMLODIPINE 5MG TABLET PO SCH (09:00)
[2022-11-15] MEDS: LIDOCAINE 5% PATCH TOP SCH (09:02)
[2022-11-15] MEDS: DICLOFENAC SODIUM 1% GEL 50GM TOP SCH ×4 (09:02→21:00)
[2022-11-15 11:14] LABS: PLATELET ESTIMATE NORMAL
[2022-11-15 20:00] VITALS: BP 139/52; PULSE 77; RESP 20; TEMP 97.6
[2022-11-15] MEDS: QUETIAPINE FUMARATE 25MG TABLET PO SCH (22:00)
[2022-11-15] MEDS: ATORVASTATIN CALCIUM 40MG TABLET PO SCH (22:00)
[2022-11-15] MEDS: FAMOTIDINE 20MG TABLET PO SCH (22:00)
[2022-11-16] MEDS: GABAPENTIN 100MG CAPSULE PO SCH ×3 (06:17→21:49)
[2022-11-16 08:00] VITALS: RESP 20
[2022-11-16] MEDS: ENOXAPARIN 60MG/0.6ML SYR SUBCUT SCH ×2 (09:00→21:00)
[2022-11-16] MEDS: AMLODIPINE 5MG TABLET PO SCH (09:00)
[2022-11-16] MEDS: DICLOFENAC SODIUM 1% GEL 50GM TOP SCH ×3 (09:00→21:00)
[2022-11-16] MEDS: MULTIVITAMINS,THER W-MINERALS TABLET PO SCH (10:47)
[2022-11-16] MEDS: ASPIRIN 81MG EC TABLET PO SCH (10:48)
[2022-11-16] MEDS: THIAMINE HCL 100MG TABLET PO SCH (10:48)
[2022-11-16] MEDS: LIDOCAINE 5% PATCH TOP SCH (10:50)
[2022-11-16 20:00] VITALS: BP 106/66; PULSE 82; RESP 18; TEMP 98.4
[2022-11-16] MEDS: FAMOTIDINE 20MG TABLET PO SCH (21:46)
[2022-11-16] MEDS: ATORVASTATIN CALCIUM 40MG TABLET PO SCH ×2 (21:46→21:48)
[2022-11-16] MEDS: QUETIAPINE FUMARATE 25MG TABLET PO SCH (21:48)
[2022-11-17] MEDS: GABAPENTIN 100MG CAPSULE PO SCH ×3 (05:58→21:18)
[2022-11-17 08:00] VITALS: BP 101/63; PULSE 74; RESP 20; TEMP 98.2
[2022-11-17] MEDS: AMLODIPINE 5MG TABLET PO SCH (09:00)
[2022-11-17] MEDS: ASPIRIN 81MG EC TABLET PO SCH (09:00)
[2022-11-17] MEDS: ENOXAPARIN 60MG/0.6ML SYR SUBCUT SCH ×2 (10:24→20:39)
[2022-11-17] MEDS: MULTIVITAMINS,THER W-MINERALS TABLET PO SCH (10:25)
[2022-11-17] MEDS: THIAMINE HCL 100MG TABLET PO SCH (10:25)
[2022-11-17] MEDS: LIDOCAINE 5% PATCH TOP SCH (10:27)
[2022-11-17 20:11] VITALS: BP 107/52; PULSE 20; RESP 20; TEMP 97.6
[2022-11-17] MEDS: QUETIAPINE FUMARATE 25MG TABLET PO SCH (20:38)
[2022-11-17] MEDS: FAMOTIDINE 20MG TABLET PO SCH (20:39)
[2022-11-18] MEDS: GABAPENTIN 100MG CAPSULE PO SCH ×3 (05:49→21:01)
[2022-11-18 07:03] LABS: HEMATOCRIT. 39.1 % (42.0-52.0); HEMOGLOBIN. 13.1 g/dL (14.0-18.0); MEAN CORPUSCULAR HGB CONC 33.5 g/dL (31.0-37.0); MEAN CORPUSCULAR VOLUME 86.6 fL (80.0-94.0); MEAN PLATELET VOLUME 10.5 fl (7.4-10.4); PLATELET 157 x1000/uL (130-400); RED BLOOD CELL COUNT 4.52 mill/uL (4.7-6.1); RED CELL DISTRIBUTION WIDTH 13.1 % (11.6-14.6); WHITE BLOOD COUNT 2.9 x1000/uL (4.5-11.0)
[2022-11-18 07:05] LABS: DIFFERENTIAL COMMENT 1
[2022-11-18 08:00] VITALS: BP 115/75; PULSE 102; RESP 18; TEMP 96.6
[2022-11-18] MEDS: LIDOCAINE 5% PATCH TOP SCH (09:00)
[2022-11-18] MEDS: MULTIVITAMINS,THER W-MINERALS TABLET PO SCH (09:14)
[2022-11-18] MEDS: THIAMINE HCL 100MG TABLET PO SCH (09:14)
[2022-11-18] MEDS: ASPIRIN 81MG EC TABLET PO SCH (09:14)
[2022-11-18] MEDS: AMLODIPINE 5MG TABLET PO SCH (09:15)
[2022-11-18] MEDS: ENOXAPARIN 60MG/0.6ML SYR SUBCUT SCH ×2 (09:16→20:51)
[2022-11-18 10:06] LABS: CHLORIDE 111 mEq/L (98-107); INDEX HEMOLYSI 1 (1-3); INDEX ICTERIC 1 (1-4); INDEX LIPEMIC 1 (1-3); POTASSIUM 4.1 mEq/L (3.5-5.1); SODIUM 139 mEq/L (136-145)
[2022-11-18 10:13] LABS: ALANINE AMINOTRANSFERASE 203 IU/L (13-61); ALBUMIN 2.6 g/dL (3.4-5.0); ASPARTATE AMINOTRANSFERASE 189 IU/L (15-37); BILIRUBIN TOTAL 0.5 mg/dL (0.1-1.0); CALCIUM 9.1 mg/dL (8.5-10.1); CARBON DIOXIDE 24 mEq/L (21-32); CREATININE 0.8 mg/dL (0.6-1.3); GLUCOSE 82 mg/dL (70-105); PROTEIN TOTAL 8.1 g/dL (6.0-8.3); UREA NITROGEN BLOOD 15 mg/dL (7-21)
[2022-11-18 12:17] LABS: PLATELET ESTIMATE NORMAL
[2022-11-18 20:00] VITALS: BP 112/74; PULSE 87; RESP 17; TEMP 97.6
[2022-11-18] MEDS: FAMOTIDINE 20MG TABLET PO SCH (20:51)
[2022-11-18] MEDS: QUETIAPINE FUMARATE 25MG TABLET PO SCH (20:51)
[2022-11-18] MEDS: ATORVASTATIN CALCIUM 40MG TABLET PO SCH (20:51)
[2022-11-19] MEDS: GABAPENTIN 100MG CAPSULE PO SCH (06:27)
[2022-11-19 08:00] VITALS: BP 111/69; PULSE 83; RESP 20; TEMP 98.1
[2022-11-19] MEDS: ERGOCALCIFEROL 50000UNITS CAPSULE PO SCH (08:39)
[2022-11-19] MEDS: ENOXAPARIN 60MG/0.6ML SYR SUBCUT SCH (08:39)
[2022-11-19] MEDS: MULTIVITAMINS,THER W-MINERALS TABLET PO SCH (08:39)
[2022-11-19] MEDS: ASPIRIN 81MG EC TABLET PO SCH (08:40)
[2022-11-19] MEDS: THIAMINE HCL 100MG TABLET PO SCH (08:40)
[2022-11-19] MEDS: AMLODIPINE 5MG TABLET PO SCH (09:00)
[2022-11-19] MEDS: LIDOCAINE 5% PATCH TOP SCH (09:00)
[2022-11-19] MEDS ORDERED: HYDROCODONE/ACETAMINOPHEN 5/325MG TABLET PO PRN (09:30)
[2022-11-19] MEDS ORDERED: NALOXONE HCL 0.4MG/ML VIAL IV PRN (09:45)
[2022-11-19 11:55] VITALS: BP 111/69; PULSE 79; TEMP 97.3; O2SAT 98
[2022-11-19 14:11] VITALS: PULSE 83; RESP 18
[2023-01-02] MEDS ORDERED: CHOLECALCIFEROL (D3) 1000 UNIT TABLET PO SCH (09:00)
== END 2022-11-19 14:11 | disposition home health service (06) | DRG 64 ==
PROVIDERS: ADMIT Physical Medicine & Rehabilitation Spinal Cord Injury Medicine; ATTEND Hospitalist
DX: I62.9 Nontraumatic intracranial hemorrhage, unspecified (principal); G93.41 Metabolic encephalopathy; I63.9 Cerebral infarction, unspecified; I69.254 Hemiplegia and hemiparesis following other nontraumatic intracranial hemorrhage affecting left non-dominant side; E72.20 Disorder of urea cycle metabolism, unspecified; F33.1 Major depressive disorder, recurrent, moderate; R53.1 Weakness; D69.6 Thrombocytopenia, unspecified; F43.10 Post-traumatic stress disorder, unspecified; G40.909 Epilepsy, unspecified, not intractable, without status epilepticus; F14.10 Cocaine abuse, uncomplicated; B19.20 Unspecified viral hepatitis C without hepatic coma; D72.819 Decreased white blood cell count, unspecified; E55.9 Vitamin D deficiency, unspecified; G89.4 Chronic pain syndrome; M75.42 Impingement syndrome of left shoulder; M48.02 Spinal stenosis, cervical region; R74.01 Elevation of levels of liver transaminase levels; K22.9 Disease of esophagus, unspecified; M51.36 Other intervertebral disc degeneration, lumbar region; M47.816 Spondylosis without myelopathy or radiculopathy, lumbar region; I10 Essential (primary) hypertension; R77.2 Abnormality of alphafetoprotein; F10.10 Alcohol abuse, uncomplicated; Z63.4 Disappearance and death of family member; Z82.49 Family history of ischemic heart disease and other diseases of the circulatory system; Z91.81 History of falling; I69.222 Dysarthria following other nontraumatic intracranial hemorrhage; I69.291 Dysphagia following other nontraumatic intracranial hemorrhage; I69.292 Facial weakness following other nontraumatic intracranial hemorrhage; I69.220 Aphasia following other nontraumatic intracranial hemorrhage; R26.9 Unspecified abnormalities of gait and mobility; R53.81 Other malaise
CPT/HCPCS: 36415; 70551; 73521; 73522; 74177; 74183; 74230; 76700; 80048; 80053; 80076; 82105; 82140; 82306; 82607; 82728; 82962; 83036; 83540; 83550; 83735; 84100; 84134; 84153; 84443; 85025; 86705; 86709; 86803; 87340; 92523; 92610; 92611; 93306; 93970; 97110; 97112; 97116; 97162; 97166; 97530; 97535; 97542; 97760; A9577; C1893; J1650; J3490; J7042; G0103